=== PATIENT | female | born 1945 | race African-American/Black ===

== ENCOUNTER 2018-04-10 20:01 | Inpatient (IN) ==
[2018-04-10] MEDS ORDERED: ACETAMINOPHEN 500 MG TABLET ONE (20:14)
[2018-04-10] MEDS ORDERED: ACETAMINOPHEN 500 MG TABLET PO STA (20:17)
[2018-04-10] MEDS ORDERED: ONDANSETRON 4 MG/2 ML VIAL IV STA (21:17)
[2018-04-10] MEDS ORDERED: methylPREDNISolone SOD SUC 125 MG/2 ML VIAL IV STA (21:17)
[2018-04-10] MEDS ORDERED: PIPERACILLIN/TAZOBACTAM 3,375 MG in SODIUM CHLORIDE 0.9% 100 ML IV STA ×2 (21:17→21:26)
[2018-04-10] MEDS ORDERED: SODIUM CHLORIDE 0.9% 500 ML IV STA (21:17)
[2018-04-10] MEDS ORDERED: ALBUTEROL 2.5 MG/3 ML NEB RESP TX SCH (21:30)
[2018-04-10 22:16] LABS: Basophils # 0.1 10*3/uL (0.0-0.2); Basophils % 0.7 % (0.0-0.8); Eosinophils % 0.1 % (0.00-10.9); Hematocrit 39.6 VOL% (35.7-47.0); Hemoglobin 12.9 GM/DL (12.0-16.0); Immature Granulocytes % 0.4 %; Immature Granulocytes Absolute 0.04 #; Lymphocytes # 0.7 10*3/uL (1.4-4.0); Lymphocytes % 7.1 % (21.3-54.2); Mean Corpuscular HGB Conc 32.6 GM/DL (32-36); Mean Corpuscular Hemoglobin 26 PG (27-34); Mean Corpuscular Volume 79.7 FL (87-102); Mean Platelet Volume 10.1 FL (9.6-12.0); Monocytes # 0.4 10*3/uL (0.11-0.8); Monocytes % 4.5 % (1.7-12.7); Neutrophils # 8.4 10*3/uL (1.4-7.4); Neutrophils % 87.2 % (38.7-73.9); Platelet Count 261 T/CUMM (130-400); Red Blood Count 4.97 MC/CUMM (3.8-5.5); Red Cell Distribution Width 16.3 % (9.3-17.3); White Blood Count 9.6 T/CUMM (4-12)
[2018-04-10 22:25] LABS: INR 1.3; PT Patient Result 13.7 SECS
[2018-04-10 22:45] LABS: Lactic Acid 1.3 MMOL/L (0.4-2.0)
[2018-04-10 22:47] LABS: Alanine Aminotransferase 48 U/L (13-56); Albumin 2.7 G/DL (3.4-5.0); Alkaline Phosphatase 92 U/L (45-117); Aspartate Amino Transferase 50 U/L (0-37); Blood Urea Nitrogen 10 MG/DL (7-18); Calcium 8.6 MG/DL (8.5-10.1); Glucose 92 MG/DL (74-106); Potassium 2.9 MMOL/L (3.5-5.1); Sodium 136 MMOL/L (136-145); Total Protein 7.5 G/DL (6.4-8.3); Troponin I Only < 0.015 NG/ML (0.00-0.045)
[2018-04-10 23:03] LABS: Apearance,Urine CLOUDY (Clear); Bacteria,Urine Many /HPF (Few); Blood, Urine Large mg/dL (Negative); Glucose,Urine (UA) Negative (Negative); Hyaline Casts,Urine 17 /LPF (0-3); Ketones,Urine 5 mg/dL (Negative); Mucus,Urine Many /LPF (Occasional); Nitrite,Urine Negative (Negative); Protein,Urine 100 MG/DL; RBC,Urine 48 /HPF (0-4); Squamous Epithelial Cell,Urine Occasional /HPF (0-10); Urine Color Amber (Yellow); Urine Specific Gravity 1.032 (1.001-1.035); WBC,Urine 64 /HPF (0-6)
[2018-04-10 23:07] LABS: Bilirubin,Urine Small mg/dL (Negative)
[2018-04-10] MEDS ORDERED: MAGNESIUM SULF RIDER 2 GM in PREMIX 1 EACH IV STA (23:20)
[2018-04-10] MEDS ORDERED: LEVOFLOXACIN INJ 750 MG in PREMIX 1 EACH IV STA (23:21)
[2018-04-10] MEDS ORDERED: POTASSIUM CHLORIDE 20 MEQ TABLET PO STA (23:30)
[2018-04-11] MEDS ORDERED: SODIUM CHLORIDE 0.9% 500 ML IV STA (01:37)
[2018-04-11] MEDS ORDERED: ONDANSETRON 4 MG/2 ML VIAL IV STA (01:37)
[2018-04-11] MEDS ORDERED: ONDANSETRON 4 MG/2 ML VIAL IV PRN (02:27)
[2018-04-11] MEDS ORDERED: ACETAMINOPHEN 325 MG TABLET PO PRN (02:27)
[2018-04-11] MEDS ORDERED: MORPHINE 4 MG/1 ML VIAL IV PRN (02:27)
[2018-04-11] MEDS ORDERED: PROMETHAZINE 25 MG TABLET PO PRN (02:27)
[2018-04-11] MEDS ORDERED: PROMETHAZINE 25 MG/1 ML VIAL IM STA (02:29)
[2018-04-11] MEDS ORDERED: KETOROLAC 30 MG/1 ML VIAL IV STA (02:30)
[2018-04-11] MEDS: SODIUM CHLORIDE 0.9% 1,000 ML IV SCH ×4 (03:57→21:43)
[2018-04-11] MEDS ORDERED: LEVOTHYROXINE 100 MCG TABLET PO SCH (06:00)
[2018-04-11 07:07] LABS: Basophils % 0.1 % (0.0-0.8); Hematocrit 36.5 VOL% (35.7-47.0); Hemoglobin 11.5 GM/DL (12.0-16.0); Immature Granulocytes % 0.4 %; Immature Granulocytes Absolute 0.03 #; Lymphocytes # 0.3 10*3/uL (1.4-4.0); Lymphocytes % 3.3 % (21.3-54.2); Mean Corpuscular HGB Conc 31.5 GM/DL (32-36); Mean Corpuscular Hemoglobin 26 PG (27-34); Mean Corpuscular Volume 80.9 FL (87-102); Monocytes # 0.1 10*3/uL (0.11-0.8); Monocytes % 0.8 % (1.7-12.7); Neutrophils # 8.1 10*3/uL (1.4-7.4); Neutrophils % 95.4 % (38.7-73.9); Platelet Count 232 T/CUMM (130-400); Red Blood Count 4.51 MC/CUMM (3.8-5.5); Red Cell Distribution Width 16.6 % (9.3-17.3); White Blood Count 8.5 T/CUMM (4-12)
[2018-04-11 07:30] LABS: Anisocytosis 1+; Band Neutrophils 24 % (0-10); Lymphocytes 4 % (20-55); Platelet Estimate Normal; Segmented Neutrophils 71 % (50-85); Total Cells Counted 100
[2018-04-11 07:31] LABS: Poikilocytosis Slight
[2018-04-11 07:41] LABS: Blood Urea Nitrogen 10 MG/DL (7-18); Calcium 7.6 MG/DL (8.5-10.1); Glucose 213 MG/DL (74-106); Osmolality,Calculated 281.5 MOS/KG (273-304); Potassium 3.6 MMOL/L (3.5-5.1); Sodium 139 MMOL/L (136-145); Thyroid Stimulating Hormone < 0.005 uIU/ml (0.358-3.74)
[2018-04-11] MEDS: CALCIUM (CITRATE) 200 MG TABLET PO SCH ×2 (09:45→21:39)
[2018-04-11] MEDS: PANTOPRAZOLE 40 MG TABLET PO SCH (09:46)
[2018-04-11] MEDS: MONTELUKAST 10 MG TABLET PO SCH (09:47)
[2018-04-11] MEDS: CHOLECALCIFEROL 1,000 UNIT TABLET PO SCH (09:47)
[2018-04-11] MEDS: ESTROGENS (CONJ) 0.3 MG TABLET PO SCH (09:48)
[2018-04-11] MEDS: MAGNESIUM GLUCONATE 500 MG TABLET PO SCH (09:48)
[2018-04-11] MEDS: ENOXAPARIN 40 MG/0.4 ML SYRINGE SUBCUT SCH (09:48)
[2018-04-11] MEDS: POTASSIUM CHLORIDE 20 MEQ TABLET PO SCH ×2 (09:48→21:39)
[2018-04-11] MEDS: amLODIPine 10 MG TABLET PO SCH (09:48)
[2018-04-11] MEDS: ERTAPENEM 1,000 MG in SODIUM CHLORIDE 0.9% 100 ML IV SCH (11:50)
[2018-04-11] MEDS: LEVOTHYROXINE 50 MCG TABLET PO SCH (13:02)
[2018-04-11] MEDS ORDERED: NAPROXEN 500 MG TABLET PO PRN (14:38)
[2018-04-11] MEDS ORDERED: LEVOFLOXACIN INJ 500 MG in PREMIX 1 EACH IV SCH (21:00)
[2018-04-11] MEDS: ASPIRIN EC 81 MG TABLET PO SCH (21:38)
[2018-04-12] MEDS: LEVOTHYROXINE 50 MCG TABLET PO SCH (06:31)
[2018-04-12 06:47] LABS: Calcium 7.9 MG/DL (8.5-10.1); Osmolality,Calculated 280.1 MOS/KG (273-304); Potassium 4.1 MMOL/L (3.5-5.1)
[2018-04-12] MEDS: SODIUM CHLORIDE 0.9% 1,000 ML IV SCH (08:30)
[2018-04-12] MEDS: MONTELUKAST 10 MG TABLET PO SCH (09:12)
[2018-04-12] MEDS: PANTOPRAZOLE 40 MG TABLET PO SCH (09:12)
[2018-04-12] MEDS: MAGNESIUM GLUCONATE 500 MG TABLET PO SCH (09:12)
[2018-04-12] MEDS: CHOLECALCIFEROL 1,000 UNIT TABLET PO SCH (09:12)
[2018-04-12] MEDS: amLODIPine 10 MG TABLET PO SCH (09:13)
[2018-04-12] MEDS: CALCIUM (CITRATE) 200 MG TABLET PO SCH ×2 (09:13→20:52)
[2018-04-12] MEDS: POTASSIUM CHLORIDE 20 MEQ TABLET PO SCH ×2 (09:13→20:52)
[2018-04-12] MEDS: ENOXAPARIN 40 MG/0.4 ML SYRINGE SUBCUT SCH (09:16)
[2018-04-12] MEDS: ESTROGENS (CONJ) 0.3 MG TABLET PO SCH (09:19)
[2018-04-12] MEDS: ERTAPENEM 1,000 MG in SODIUM CHLORIDE 0.9% 100 ML IV SCH (11:35)
[2018-04-12] MEDS: BUDESONIDE 3 MG CAPSULE PO SCH (11:35)
[2018-04-12] MEDS: ALBUTEROL/IPRATROPIUM 3 ML NEB RESP TX SCH ×2 (13:40→19:01)
[2018-04-12] MEDS ORDERED: FUROSEMIDE 40 MG/4 ML VIAL IV ONE (14:42)
[2018-04-12] MEDS ORDERED: DIAZEPAM 5 MG TABLET PO ONE (16:30)
[2018-04-12] MEDS: ATORVASTATIN 10 MG TABLET PO SCH (20:52)
[2018-04-12] MEDS: ASPIRIN EC 81 MG TABLET PO SCH (20:52)
[2018-04-13] MEDS: ALBUTEROL/IPRATROPIUM 3 ML NEB RESP TX SCH ×4 (00:12→18:58)
[2018-04-13 06:02] LABS: Basophils % 0.4 % (0.0-0.8); Eosinophils # 0.1 10*3/uL (0.0-0.87); Eosinophils % 1.8 % (0.00-10.9); Hematocrit 36.2 VOL% (35.7-47.0); Hemoglobin 11.9 GM/DL (12.0-16.0); Immature Granulocytes % 0.3 %; Immature Granulocytes Absolute 0.02 #; Lymphocytes # 1.8 10*3/uL (1.4-4.0); Lymphocytes % 25.2 % (21.3-54.2); Mean Corpuscular HGB Conc 32.9 GM/DL (32-36); Mean Corpuscular Hemoglobin 26 PG (27-34); Mean Corpuscular Volume 78.5 FL (87-102); Mean Platelet Volume 10.5 FL (9.6-12.0); Monocytes % 13.4 % (1.7-12.7); Neutrophils # 4.2 10*3/uL (1.4-7.4); Neutrophils % 58.9 % (38.7-73.9); Platelet Count 273 T/CUMM (130-400); Red Blood Count 4.61 MC/CUMM (3.8-5.5); Red Cell Distribution Width 16.7 % (9.3-17.3); White Blood Count 7.1 T/CUMM (4-12)
[2018-04-13] MEDS: LEVOTHYROXINE 50 MCG TABLET PO SCH (06:12)
[2018-04-13 06:23] LABS: Calcium 9.2 MG/DL (8.5-10.1); Osmolality,Calculated 273.5 MOS/KG (273-304)
[2018-04-13 06:24] LABS: % Iron Saturation 13.8 % (18-50)
[2018-04-13 06:44] LABS: Folate 6.2 NG/ML (5.4-24.0)
[2018-04-13] MEDS: CALCIUM (CITRATE) 200 MG TABLET PO SCH ×2 (09:53→21:07)
[2018-04-13] MEDS: POTASSIUM CHLORIDE 20 MEQ TABLET PO SCH ×2 (09:53→21:06)
[2018-04-13] MEDS: BUDESONIDE 3 MG CAPSULE PO SCH (09:54)
[2018-04-13] MEDS: CHOLECALCIFEROL 1,000 UNIT TABLET PO SCH (09:54)
[2018-04-13] MEDS: MONTELUKAST 10 MG TABLET PO SCH (09:54)
[2018-04-13] MEDS: POTASSIUM CHLORIDE 20 MEQ TABLET PO PRN ×4 (09:54→16:53)
[2018-04-13] MEDS: MAGNESIUM GLUCONATE 500 MG TABLET PO SCH (09:54)
[2018-04-13] MEDS: PANTOPRAZOLE 40 MG TABLET PO SCH (09:54)
[2018-04-13] MEDS: ESTROGENS (CONJ) 0.3 MG TABLET PO SCH (09:54)
[2018-04-13] MEDS: ENOXAPARIN 40 MG/0.4 ML SYRINGE SUBCUT SCH (09:54)
[2018-04-13] MEDS: amLODIPine 10 MG TABLET PO SCH (09:54)
[2018-04-13] MEDS: ERTAPENEM 1,000 MG in SODIUM CHLORIDE 0.9% 100 ML IV SCH (10:15)
[2018-04-13] MEDS: DORNASE ALFA 2.5 MG/2.5 ML VIAL RESP TX SCH ×2 (12:47→19:11)
[2018-04-13] MEDS: DOXYCYCLINE HYCLATE INJ 100 MG in SODIUM CHLORIDE 0.9% 100 ML IV SCH (15:45)
[2018-04-13] MEDS: ASPIRIN EC 81 MG TABLET PO SCH (21:06)
[2018-04-14] MEDS: ALBUTEROL/IPRATROPIUM 3 ML NEB RESP TX SCH ×4 (00:12→19:29)
[2018-04-14] MEDS: DOXYCYCLINE HYCLATE INJ 100 MG in SODIUM CHLORIDE 0.9% 100 ML IV SCH ×2 (03:09→15:54)
[2018-04-14] MEDS: LEVOTHYROXINE 50 MCG TABLET PO SCH (06:12)
[2018-04-14] MEDS: DORNASE ALFA 2.5 MG/2.5 ML VIAL RESP TX SCH ×2 (07:03→19:30)
[2018-04-14 07:07] LABS: Calcium 9.4 MG/DL (8.5-10.1); Osmolality,Calculated 272.7 MOS/KG (273-304); Potassium 4.5 MMOL/L (3.5-5.1)
[2018-04-14] MEDS: ENOXAPARIN 40 MG/0.4 ML SYRINGE SUBCUT SCH (09:05)
[2018-04-14] MEDS: CHOLECALCIFEROL 1,000 UNIT TABLET PO SCH (09:05)
[2018-04-14] MEDS: MONTELUKAST 10 MG TABLET PO SCH (09:05)
[2018-04-14] MEDS: CALCIUM (CITRATE) 200 MG TABLET PO SCH ×2 (09:05→21:08)
[2018-04-14] MEDS: BUDESONIDE 3 MG CAPSULE PO SCH (09:06)
[2018-04-14] MEDS: MAGNESIUM GLUCONATE 500 MG TABLET PO SCH (09:06)
[2018-04-14] MEDS: amLODIPine 10 MG TABLET PO SCH (09:09)
[2018-04-14] MEDS: ESTROGENS (CONJ) 0.3 MG TABLET PO SCH (09:11)
[2018-04-14] MEDS: PANTOPRAZOLE 40 MG TABLET PO SCH (09:11)
[2018-04-14] MEDS: POTASSIUM CHLORIDE 20 MEQ TABLET PO SCH ×2 (09:15→21:08)
[2018-04-14] MEDS: VANCOMYCIN INJ 750 MG in SODIUM CHLORIDE 0.9% 250 ML IV SCH ×2 (12:44→23:34)
[2018-04-14] MEDS: ASPIRIN EC 81 MG TABLET PO SCH (21:08)
[2018-04-14] MEDS: ATORVASTATIN 10 MG TABLET PO SCH (21:08)
[2018-04-15] MEDS: ALBUTEROL/IPRATROPIUM 3 ML NEB RESP TX SCH ×4 (01:34→19:26)
[2018-04-15] MEDS: DOXYCYCLINE HYCLATE INJ 100 MG in SODIUM CHLORIDE 0.9% 100 ML IV SCH ×2 (03:09→15:53)
[2018-04-15] MEDS: LEVOTHYROXINE 50 MCG TABLET PO SCH (06:01)
[2018-04-15 06:58] LABS: Basophils % 0.5 % (0.0-0.8); Eosinophils # 0.4 10*3/uL (0.0-0.87); Eosinophils % 5.7 % (0.00-10.9); Hemoglobin 11.7 GM/DL (12.0-16.0); Immature Granulocytes % 0.5 %; Immature Granulocytes Absolute 0.03 #; Lymphocytes # 2.4 10*3/uL (1.4-4.0); Lymphocytes % 37.8 % (21.3-54.2); Mean Corpuscular HGB Conc 31.6 GM/DL (32-36); Mean Corpuscular Hemoglobin 26 PG (27-34); Mean Corpuscular Volume 81.1 FL (87-102); Mean Platelet Volume 9.9 FL (9.6-12.0); Monocytes # 0.8 10*3/uL (0.11-0.8); Monocytes % 12.4 % (1.7-12.7); Neutrophils # 2.7 10*3/uL (1.4-7.4); Neutrophils % 43.1 % (38.7-73.9); Platelet Count 273 T/CUMM (130-400); Red Blood Count 4.56 MC/CUMM (3.8-5.5); Red Cell Distribution Width 16.8 % (9.3-17.3); White Blood Count 6.3 T/CUMM (4-12)
[2018-04-15 07:22] LABS: Calcium 8.9 MG/DL (8.5-10.1); Osmolality,Calculated 274.5 MOS/KG (273-304); Potassium 3.8 MMOL/L (3.5-5.1)
[2018-04-15] MEDS: DORNASE ALFA 2.5 MG/2.5 ML VIAL RESP TX SCH ×2 (07:35→19:26)
[2018-04-15] MEDS: BUDESONIDE 3 MG CAPSULE PO SCH (08:32)
[2018-04-15] MEDS: ENOXAPARIN 40 MG/0.4 ML SYRINGE SUBCUT SCH (08:32)
[2018-04-15] MEDS: CALCIUM (CITRATE) 200 MG TABLET PO SCH ×2 (08:32→21:22)
[2018-04-15] MEDS: MONTELUKAST 10 MG TABLET PO SCH (08:33)
[2018-04-15] MEDS: PANTOPRAZOLE 40 MG TABLET PO SCH (08:33)
[2018-04-15] MEDS: CHOLECALCIFEROL 1,000 UNIT TABLET PO SCH (08:33)
[2018-04-15] MEDS: MAGNESIUM GLUCONATE 500 MG TABLET PO SCH (08:33)
[2018-04-15] MEDS: ESTROGENS (CONJ) 0.3 MG TABLET PO SCH (08:33)
[2018-04-15] MEDS: POTASSIUM CHLORIDE 20 MEQ TABLET PO SCH ×2 (08:33→21:23)
[2018-04-15] MEDS: amLODIPine 10 MG TABLET PO SCH (08:42)
[2018-04-15] MEDS: VANCOMYCIN INJ 750 MG in SODIUM CHLORIDE 0.9% 250 ML IV SCH (12:44)
[2018-04-15] MEDS: ASPIRIN EC 81 MG TABLET PO SCH (21:22)
[2018-04-16] MEDS: ALBUTEROL/IPRATROPIUM 3 ML NEB RESP TX SCH ×4 (00:47→19:20)
[2018-04-16] MEDS: VANCOMYCIN INJ 750 MG in SODIUM CHLORIDE 0.9% 250 ML IV SCH ×2 (01:26→14:30)
[2018-04-16] MEDS: DOXYCYCLINE HYCLATE INJ 100 MG in SODIUM CHLORIDE 0.9% 100 ML IV SCH ×2 (04:10→17:30)
[2018-04-16] MEDS: LEVOTHYROXINE 50 MCG TABLET PO SCH (06:43)
[2018-04-16] MEDS: DORNASE ALFA 2.5 MG/2.5 ML VIAL RESP TX SCH ×2 (08:02→19:20)
[2018-04-16] MEDS: ENOXAPARIN 40 MG/0.4 ML SYRINGE SUBCUT SCH (08:51)
[2018-04-16] MEDS: BUDESONIDE 3 MG CAPSULE PO SCH (08:51)
[2018-04-16] MEDS: MONTELUKAST 10 MG TABLET PO SCH (08:51)
[2018-04-16] MEDS: MAGNESIUM GLUCONATE 500 MG TABLET PO SCH (08:52)
[2018-04-16] MEDS: CHOLECALCIFEROL 1,000 UNIT TABLET PO SCH (08:52)
[2018-04-16] MEDS: amLODIPine 10 MG TABLET PO SCH (08:52)
[2018-04-16] MEDS: POTASSIUM CHLORIDE 20 MEQ TABLET PO SCH ×2 (08:52→21:15)
[2018-04-16] MEDS: CALCIUM (CITRATE) 200 MG TABLET PO SCH ×2 (08:52→21:13)
[2018-04-16] MEDS: PANTOPRAZOLE 40 MG TABLET PO SCH (08:52)
[2018-04-16] MEDS: ESTROGENS (CONJ) 0.3 MG TABLET PO SCH (08:53)
[2018-04-16] MEDS: ASPIRIN EC 81 MG TABLET PO SCH (21:14)
[2018-04-17] MEDS: ALBUTEROL/IPRATROPIUM 3 ML NEB RESP TX SCH ×4 (00:40→19:15)
[2018-04-17] MEDS: VANCOMYCIN INJ 750 MG in SODIUM CHLORIDE 0.9% 250 ML IV SCH ×2 (01:47→15:10)
[2018-04-17] MEDS: DOXYCYCLINE HYCLATE INJ 100 MG in SODIUM CHLORIDE 0.9% 100 ML IV SCH ×2 (04:24→17:59)
[2018-04-17] MEDS: LEVOTHYROXINE 50 MCG TABLET PO SCH (06:15)
[2018-04-17] MEDS: DORNASE ALFA 2.5 MG/2.5 ML VIAL RESP TX SCH ×2 (07:31→19:15)
[2018-04-17] MEDS: MAGNESIUM GLUCONATE 500 MG TABLET PO SCH (08:18)
[2018-04-17] MEDS: MONTELUKAST 10 MG TABLET PO SCH (08:18)
[2018-04-17] MEDS: PANTOPRAZOLE 40 MG TABLET PO SCH (08:18)
[2018-04-17] MEDS: CHOLECALCIFEROL 1,000 UNIT TABLET PO SCH (08:18)
[2018-04-17] MEDS: CALCIUM (CITRATE) 200 MG TABLET PO SCH ×2 (08:18→20:52)
[2018-04-17] MEDS: ENOXAPARIN 40 MG/0.4 ML SYRINGE SUBCUT SCH (08:18)
[2018-04-17] MEDS: BUDESONIDE 3 MG CAPSULE PO SCH (08:19)
[2018-04-17] MEDS: POTASSIUM CHLORIDE 20 MEQ TABLET PO SCH ×2 (08:19→20:52)
[2018-04-17] MEDS: amLODIPine 10 MG TABLET PO SCH (08:34)
[2018-04-17] MEDS: ESTROGENS (CONJ) 0.3 MG TABLET PO SCH (09:40)
[2018-04-17] MEDS: ATORVASTATIN 10 MG TABLET PO SCH (20:52)
[2018-04-17] MEDS: ASPIRIN EC 81 MG TABLET PO SCH (20:52)
[2018-04-18] MEDS: ALBUTEROL/IPRATROPIUM 3 ML NEB RESP TX SCH ×4 (00:11→19:59)
[2018-04-18] MEDS: VANCOMYCIN INJ 750 MG in SODIUM CHLORIDE 0.9% 250 ML IV SCH (01:36)
[2018-04-18] MEDS: DOXYCYCLINE HYCLATE INJ 100 MG in SODIUM CHLORIDE 0.9% 100 ML IV SCH (04:39)
[2018-04-18 05:38] LABS: Basophils % 0.4 % (0.0-0.8); Eosinophils # 0.7 10*3/uL (0.0-0.87); Eosinophils % 7.4 % (0.00-10.9); Hematocrit 36.8 VOL% (35.7-47.0); Hemoglobin 11.8 GM/DL (12.0-16.0); Lymphocytes # 2.6 10*3/uL (1.4-4.0); Mean Corpuscular HGB Conc 32.1 GM/DL (32-36); Mean Corpuscular Hemoglobin 26 PG (27-34); Mean Corpuscular Volume 79.8 FL (87-102); Mean Platelet Volume 9.8 FL (9.6-12.0); Monocytes # 0.9 10*3/uL (0.11-0.8); Monocytes % 8.9 % (1.7-12.7); Neutrophils # 5.6 10*3/uL (1.4-7.4); Neutrophils % 56.3 % (38.7-73.9); Platelet Count 341 T/CUMM (130-400); Red Blood Count 4.61 MC/CUMM (3.8-5.5); Red Cell Distribution Width 17.1 % (9.3-17.3)
[2018-04-18 06:03] LABS: Calcium 9.2 MG/DL (8.5-10.1); Osmolality,Calculated 274.5 MOS/KG (273-304); Potassium 3.7 MMOL/L (3.5-5.1)
[2018-04-18] MEDS: LEVOTHYROXINE 50 MCG TABLET PO SCH (06:46)
[2018-04-18] MEDS: DORNASE ALFA 2.5 MG/2.5 ML VIAL RESP TX SCH ×2 (07:04→19:59)
[2018-04-18] MEDS: PANTOPRAZOLE 40 MG TABLET PO SCH (09:07)
[2018-04-18] MEDS: ENOXAPARIN 40 MG/0.4 ML SYRINGE SUBCUT SCH (09:07)
[2018-04-18] MEDS: MONTELUKAST 10 MG TABLET PO SCH (09:07)
[2018-04-18] MEDS: ESTROGENS (CONJ) 0.3 MG TABLET PO SCH (09:07)
[2018-04-18] MEDS: MAGNESIUM GLUCONATE 500 MG TABLET PO SCH (09:07)
[2018-04-18] MEDS: CHOLECALCIFEROL 1,000 UNIT TABLET PO SCH (09:07)
[2018-04-18] MEDS: CALCIUM (CITRATE) 200 MG TABLET PO SCH ×2 (09:07→21:05)
[2018-04-18] MEDS: POTASSIUM CHLORIDE 20 MEQ TABLET PO SCH ×2 (09:08→21:05)
[2018-04-18] MEDS: BUDESONIDE 3 MG CAPSULE PO SCH (09:08)
[2018-04-18] MEDS: amLODIPine 5 MG TABLET PO SCH (11:48)
[2018-04-18] MEDS: ASPIRIN EC 81 MG TABLET PO SCH (21:05)
[2018-04-19] MEDS: ALBUTEROL/IPRATROPIUM 3 ML NEB RESP TX SCH ×2 (01:11→07:05)
[2018-04-19] MEDS: DORNASE ALFA 2.5 MG/2.5 ML VIAL RESP TX SCH (07:11)
[2018-04-19] MEDS: LEVOTHYROXINE 50 MCG TABLET PO SCH (07:20)
[2018-04-19] MEDS: PANTOPRAZOLE 40 MG TABLET PO SCH (09:50)
[2018-04-19] MEDS: BUDESONIDE 3 MG CAPSULE PO SCH (09:50)
[2018-04-19] MEDS: CALCIUM (CITRATE) 200 MG TABLET PO SCH (09:50)
[2018-04-19] MEDS: CHOLECALCIFEROL 1,000 UNIT TABLET PO SCH (09:50)
[2018-04-19] MEDS: MAGNESIUM GLUCONATE 500 MG TABLET PO SCH (09:50)
[2018-04-19] MEDS: POTASSIUM CHLORIDE 20 MEQ TABLET PO SCH (09:50)
[2018-04-19] MEDS: amLODIPine 5 MG TABLET PO SCH (09:50)
[2018-04-19] MEDS: MONTELUKAST 10 MG TABLET PO SCH (09:50)
[2018-04-19] MEDS: ENOXAPARIN 40 MG/0.4 ML SYRINGE SUBCUT SCH (09:51)
[2018-04-19] MEDS: ESTROGENS (CONJ) 0.3 MG TABLET PO SCH (12:13)
[2018-04-19 12:40] VITALS: BP 106/69
== END 2018-04-19 13:10 | disposition home or self-care (01) | DRG 872 ==
LOC: N.ED 20:01 → N.EDINP 04-11 02:25 → SUATTDRO 04-11 02:25 → N.3E 04-11 03:07
PROVIDERS: ADMIT Hospitalist